=== PATIENT | female | born 1985 | race Caucasian/White ===

== ENCOUNTER 2018-04-05 20:02 | Emergency (ER) | payer MEDICAID ==
[2018-04-05 20:46] VITALS: BMI 23.3
[2018-04-05] MEDS ORDERED: TDAP Vaccine 0.5 mL Syr IM ONE (21:56)
--- NOTE | 2018-04-05 22:05 | ED PDOC ---
Arrival/HPI - General Chief Complaint: Eye Problem Time Seen by Provider: 04/05/18 20:50 Historian: Patient - History of Present Illness Narrative History of Present Illness (Text): 04/05/18 22:06 33-year-old female presents today with foreign body in the eye. Patient states at home prior to arrival she was trying to open a Krazy glue container in the crazy glue squirted in the eye. Patient states she washed the eye out with water but she still feels foreign body sensation in the eye. Patient denies fevers or chills. Unsure of her last tetanus shot. No medications have been taken at home. No other complaints Time/Duration: Prior to Arrival Symptom Onset: Sudden Symptom Course: Unchanged Past Medical History - Provider Review Nursing Documentation Reviewed: Yes - Travel History Have you recently traveled outside [place] w/in the past 3 mons?: No - Tetanus Immunization Tetanus Immunization: Unknown - Reproductive Currently : No - Psychiatric Hx Substance Use: No Family/Social History - Physician Review Nursing Documentation Reviewed: Yes Family/Social History: Unknown Family HX Smoking Status: Never Smoked Hx Alcohol Use: No Hx Substance Use: No Allergies/Home Meds Allergies/Adverse Reactions: Allergies No Known Allergies Allergy (Verified 04/05/18 20:46) Review of Systems - Review of Systems Constitutional: absent: Fatigue, Fevers Eyes: Eye Pain ENT: absent: Sore Throat Respiratory: absent: SOB, Cough Cardiovascular: absent: Chest Pain, Palpitations Gastrointestinal: absent: Abdominal Pain, Nausea, Vomiting Musculoskeletal: absent: Arthralgias Neurological: absent: Headache, Dizziness Physical Exam Vital Signs Reviewed: Yes Temperature: Afebrile Blood Pressure: Normal Pulse: Regular Respiratory Rate: Normal Appearance: Positive for: Well-Appearing, Non-Toxic, Comfortable Pain Distress: None Mental Status: Positive for: Alert and Oriented X 3 - Systems Exam Head: Present: Atraumatic Pupils: Present: PERRL Extroacular Muscles: Present: EOMI Conjunctiva: Present: Injected (right conjunctival injection. there are 2 small opacities approx 1mm along the lateral corneal and over the pupil. ) Mouth: Present: Moist Mucous Membranes Respiratory/Chest: Present: Clear to Auscultation Cardiovascular: Present: Regular Rate and Rhythm Neurological: Present: GCS=15 Skin: Present: Warm, Dry Psychiatric: Present: Alert, Oriented x 3 Medical Decision Making ED Course and Treatment: 04/05/18 22:14 patient is nontoxic well-appearing in no distress his stable vitals complaining of a foreign body sensation to the right eye Patient found to have 2 small 1 mm opaque foreign bodies noted over the cornea. Visual acuity within normal limits Case was discussed with Dr. Paige. in depth. Patient to call the office tomorrow at 9:30 in the morning and schedule follow-up appointment.he advised giving antibiotics ointment. Tetanus updated. patient Started on tobramycin ointment. Patient was advised to follow-up with the eye doctor tomorrow. Advised immediate return if symptoms worsen persist or if new concerning symptoms develop Patient verbalizes understanding of discharge instructions and need for immediate followup. all aspects of this case were discussed the attending of record. Impression: foreign body, eye Tobrex: apply to the affected eye 4 times daily Followup with the eye doctor tomorrow. Call at 930am to schedule appointment. Return immediately if symptoms worsen persist or if new symptoms develop; blurry vision, worsening eye pain, worsening redness or any other concerning symptoms develop. Follow up with her primary care physician within the next 2 days Disposition/Present on Arrival - Present on Arrival Any Indicators Present on Arrival: No History of DVT/PE: No History of Uncontrolled Diabetes: No Urinary Catheter: No History of Decub. Ulcer: No History Surgical Site Infection Following: None - Disposition Have Diagnosis and Disposition been Completed?: Yes Diagnosis: Foreign body in eye Disposition: HOME/ ROUTINE Disposition Time: 22:03 Patient Plan: Discharge Condition: GOOD Discharge Instructions (ExitCare): Foreign Body in Eye (DC) Additional Instructions: Tobrex: apply to the affected eye 4 times daily Followup with the eye doctor tomorrow. Call at 930am to schedule appointment. Return immediately if symptoms worsen persist or if new symptoms develop; blurry vision, worsening eye pain, worsening redness or any other concerning symptoms develop. Follow up with her primary care physician within the next 2 days Prescriptions: Tobramycin 0.3% [Tobrex 0.3% Ophth Oint] 1 appl OD TID #1 tube Referrals: Dori Marie DO [Primary Care Provider] - Follow up with primary Jigar Paige [Staff Provider] - Follow up with primary Forms: [facility] (Italian), WORK NOTE
[2018-04-05] MEDS ORDERED: Tobramycin 0.3% OPH OINT OD STA (22:06)
[2018-04-05 22:11] VITALS: RESP 18; O2SAT 98
[2018-04-05 22:19] VITALS: TEMP 98.2
[2018-04-05 22:22] VITALS: BP 112/80; PULSE 91
== END 2018-04-05 22:54 | disposition home or self-care (01) ==
LOC: ED 20:02
DX: T15.91XA Foreign body on external eye, part unspecified, right eye, initial encounter (principal); X58.XXXA Exposure to other specified factors, initial encounter; Z23 Encounter for immunization